=== PATIENT | male | born 1995 | race Caucasian/White ===

== ENCOUNTER 2019-12-26 13:32 | Emergency (ER) | payer MEDICAID ==
[~2019-12-26] VITALS: Ht 180.3 cm; Wt 77.1 kg
[2019-12-26 14:01] VITALS: BP 104/74
--- NOTE | 2019-12-26 14:07 | NUR ---
TO LOBBY, VSS. AWAITING BED IN ED.
--- NOTE | 2019-12-26 14:25 | NUR ---
PT AMB TO BED 10.
--- NOTE | 2019-12-26 14:35 | NUR ---
C/O R HAND PAIN & SWELLING S/P HIT HIS R HAND ON THE WALL X LAST NIGHT. STATES FULL ROM TO ALL JOINTS IN HAND. DENIES NUMBNESS/TINGLING. RADIAL PULSES 2+ BILATERALLY. SKIN INTACT ON RT HAND. PAIN 4/10; VSS; BED LOCKED & LOW BEDRAILS UP X1; ERMD TO EVALUATE. MED HX: DENIES
--- NOTE | 2019-12-26 14:38 | NUR ---
PA WARREN EVALUATING PT AT BEDSIDE
[2019-12-26] MEDS ORDERED: IBUPROFEN 600 MG TAB PO ONE (14:45)
[2019-12-26] MEDS ORDERED: BACITRACIN OINT 500 UNITS/GM PKT TP ONE (14:45)
--- NOTE | 2019-12-26 14:59 | NUR ---
JOSE MARTIN WARREN SPEAKING WITH PATIENT AT BEDSIDE
[2019-12-26 15:07] VITALS: BP 151/85
--- NOTE | 2019-12-26 15:07 | NUR ---
Patient discharged with v/s stable. Written and verbal after care instructions given and explained. Patient alert, oriented and verbalized understanding of instructions. Ambulatory with steady gait. All questions addressed prior to discharge. ID band removed. Patient advised to follow up with PMD. Rx of IBUPROFEN AND BACITRACIN given. Patient educated on indication of medication including possible reaction and side effects. Opportunity to ask questions provided and answered.
== END 2019-12-26 15:07 | disposition home or self-care (01) ==
LOC: MED 13:32
DX: S66.811A Strain of other specified muscles, fascia and tendons at wrist and hand level, right hand, initial encounter (principal); W22.01XA Walked into wall, initial encounter; Y93.89 Activity, other specified; Y92.89 Other specified places as the place of occurrence of the external cause; Y99.8 Other external cause status
CPT/HCPCS: 73130; 99283